=== PATIENT | female | born 1975 | race Caucasian/White ===

== ENCOUNTER 2018-09-26 09:18 | Emergency (ER) | payer OTHER ==
[~2018-09-26] VITALS: Ht 162.6 cm; Wt 72.6 kg
[2018-09-26] MEDS ORDERED: IBUP100S (10:04)
== END 2018-09-26 11:54 | disposition home or self-care (01) ==
LOC: ER 09:18
DX: F41.0 Panic disorder [episodic paroxysmal anxiety] (principal); Z88.1 Allergy status to other antibiotic agents; Z88.8 Allergy status to other drugs, medicaments and biological substances; F41.9 Anxiety disorder, unspecified; I10 Essential (primary) hypertension
CPT/HCPCS: 99283